=== PATIENT | female | born 1965 | race Caucasian/White ===

== ENCOUNTER 2024-09-20 08:32 | Outpatient (CLI) | payer OTHER, SELFPAY ==
--- NOTE | ~2024-09-20 | US_ITS ---
US thyroid INDICATION: Nontoxic goiter. Enlarged thyroid gland. TECHNIQUE: Real-time sonographic images of the thyroid gland were obtained. COMPARISON: No prior studies for comparison. FINDINGS: The right thyroid lobe measures 5.9 x 2.5 x 2.4 cm. The left thyroid lobe measures 6.1 x 2 .3 x 2.1 cm. Thyroid gland is diffusely heterogeneous with normal vascularity. In the right lobe ther e is a next cystic and solid mass measuring 11 x 9 x 9 mm with heterogeneous internal echotexture. Th is mass is very hypoechoic, wider than tall, slightly irregular margins with echogenic foci, TR 5. Al so in the right lobe there is a hypoechoic solid wider than tall mass with ill-defined margins and no echogenic foci measuring 1.6 x 1 x 1 cm. Normal vascular flow is present. IMPRESSION: 1. Suspicious masses of the right thyroid lobe. Ultrasound guided fine needle aspiration biopsy [place] mmended. Reviewed, dictated and finalized at location B. IMPRESSION: 1. Suspicious masses of the right thyroid lobe. Ultrasound guided fine needle aspiration biopsy recommended.
== END 2024-09-20 08:33 | disposition home or self-care (01) ==
LOC: MICIMG 08:34
DX: E04.9 Nontoxic goiter, unspecified (principal)
CPT/HCPCS: 76536